=== PATIENT | male | born 1975 | race African-American/Black ===

== ENCOUNTER → 2016-09-15 | Outpatient (CLI) | payer BC ==
--- NOTE | ~2016-09-15 | US6 ---
[facility] A Service of [facility] & [facility] RADIOLOGY TEXT RESULTS PATIENT: IRIS DING LOCATION: [facility] : 71 UNIT #: [id number] AGE: [address]: Wolfgang Su MD SEX: M ORDER DR: [id number] [facility] [address] [place], [place] [address] [id number] O MR#: [id number] Acc #: [id number] NAME: IRIS DING : 1975 SEX: M STUDY DATE/TIME: 09/15/2016 8:27 UNIT: [facility] ROOM: STUDY DESCRIPTION: US Abdominal Limited Attending Physician: Wolfgang Su M.D. Referring Physician: Wolfgang Su M.D. Ordering Physician: Wolfgang Su M.D. Primary Care Physician: Wolfgang Su M.D. MEDICAL IMAGING REPORT This report is preliminary unless electronic signature is present EXAM Right upper quadrant ultrasound, 09/15/2016. HISTORY Right upper quadrant abdominal pain and epigastric pain for 3 years. No known injury. FINDINGS The liver demonstrates an increase in echotexture with attenuation of the ultrasound beam characteristic of fatty infiltration. No cystic or solid mass lesions were seen in the liver. The intra and extrahepatic bile ducts are not dilated. The gallbladder is normal with no evidence of cholelithiasis, wall thickening, or pericholecystic fluid. The common duct measures 4 mm. The pancreas and right kidney are normal. IMPRESSION Fatty infiltration of the liver. Otherwise, negative right upper quadrant ultrasound. Dictated by... Sunny Gordon M.D. THIS IS AN ELECTRONICALLY VERIFIED REPORT Sunny Gordon M.D. at 09/15/2016 4:41 PM STEPHAN/arnulfo TD: 09/15/2016 10:32 JOB #: [id number] MEDICAL IMAGING REPORT Page 1 of 1 COPY
== END | disposition home or self-care (01) ==
LOC: CGUS 07:53
DX: R10.11 Right upper quadrant pain (principal); K76.0 Fatty (change of) liver, not elsewhere classified
CPT/HCPCS: 76705